=== PATIENT | female | born 2000 | race American Indian/Alaskan Native ===

== ENCOUNTER 2024-01-18 09:21 | Outpatient (AMB) | payer OTHER, SELFPAY ==
[2024-01-18 09:27] VITALS: BP 128/86; PULSE 100; O2SAT 99; BMI 32.6
--- NOTE | 2024-01-18 09:27 | AM.OFFWIN_ITS ---
Intake Vital Signs 3 01/18/24 09:27 Height 5 ft 2 in Weight 178 lb 8 oz BMI 32.6 BP 128/86 Blood Pressure Location Lt brachial Position Sitting Pulse 100 Pulse Source Pulse Oximeter Pulse Oximetry (%) 99 Oxygen Delivery Method Room Air Intake Visit Reasons: EP Lower Ab pain Patient Tobacco Use Status: Never used Tobacco Allergies No Known Allergies Allergy (Verified 01/18/24 09:29) Medication List - Last Reconciled 01/18/24 by Jarett Naqvi MD No Known Home Meds Do you need a note to return to daycare/school/sports/work: No HPI EP Lower Ab pain 2 HPI0 Details Patient is 23-year-old female came in today to be evaluated for lower abdominal discomfort Patient says that she has been having discomfort with past 1 week Her periods are irregular off and on She has a history of ovarian cyst that was removed On examination she is tender suprapubically over bladder Urine test done shows 3+ blood in urine I am treating her with Macrobid b.i.d. for 5 days We will send sample for urine culture Patient was encouraged to get a primary care Review system revealed no fever no chills no nausea vomiting no headaches PFSH Social History Patient Tobacco Use Status: Never used Tobacco Review of Systems Const All systems reviewed & are unremarkable except as noted in HPI and below Physical Exam Vital Signs: Last Vital Signs Pulse 100 01/18/24 09:27 BP 128/86 01/18/24 09:27 Pulse Ox 99 01/18/24 09:27 Oxygen Delivery Method Room Air 01/18/24 09:27 BMI result Body Mass Index 32.6 Const General: no acute distress Orientation/consciousness: patient oriented x3 Eyes General: appearance normal, both eyes and all related structures Resp Effort & Inspection: normal respiratory effort and able to speak in complete sentences Auscultation: clear to auscultation bilaterally GI Abdomen image: 2 1. Discomfort with pressure General: Yes no CVA tenderness Back/Spine/Pelvis Back: no CVA tenderness Neuro General: patient oriented x3 Psych Mental Status: mental status grossly normal Results AMB Urinalysis, Automated 2 UA Leukoctes Rubén/uL Last Edit by Teo Villarreal MA on 01/18/24 09:32 UA Nitrite Last Edit by Teo Villarreal MA on 01/18/24 09:32 UA Urobilinogen 0.2 mg/dL Last Edit by Teo Villarreal MA on 01/18/24 09:32 UA Protein mg/dL Last Edit by Teo Villarreal MA on 01/18/24 09:32 UA pH 7.0 Last Edit by Teo Villarreal MA on 01/18/24 09:32 UA Blood 200 Magdi/uL Last Edit by Teo Villarreal MA on 01/18/24 09:32 UA Specific [place] 1.010 Last Edit by Teo Villarreal MA on 01/18/24 09:3 2 UA Ketone Negative Last Edit by Teo Villarreal MA on 01/18/24 09:32 UA Bilirubin mg/dL Last Edit by Teo Villarreal MA on 01/18/24 09:32 UA Glucose mg/dL Last Edit by Teo Villarreal MA on 01/18/24 09:32 Results Reviewed Results Reviewed: Laboratory Last Values Urine pH (Auto) 7.0 01/18/24 09:31 Specific [place] (Auto) 1.010 01/18/24 09:31 Urine Ketones (Auto) Negative 01/18/24 09:31 Urine Blood (Auto) 200 Magdi/uL 01/18/24 09:31 Urine Urobilinogen (Auto) 0.2 mg/dL 01/18/24 09:31 Assessment & Plan Assessment & Plan (1) Hematuria: Code(s): R31.9 - Hematuria, unspecified Qualifiers: Hematuria type: gross Qualified Code(s): R31.0 - Gross hematuria Plan Patient is 23-year-old female came in today to be evaluated for lower abdominal discomfort Patient says that she has been having discomfort with past 1 week Her periods are irregular off and on She has a history of ovarian cyst that was removed On examination she is tender suprapubically over bladder Urine test done shows 3+ blood in urine I am treating her with Macrobid b.i.d. for 5 days We will send sample for urine culture Patient was encouraged to get a primary care Review system revealed no fever no chills no nausea vomiting no headaches Orders: Orders 2 Urine Culture Today R31.9 - Hematuria, unspecified Medications: New 2 nitrofurantoin monohyd/m-cryst 100 mg (Macrobid) must administer with a meal/food 100 mg PO Q12H 10 caps 0RF 5 days Coding Level of Care Code New Pt Level 3 (19406) Diagnoses Gross hematuria R31.0 Hematuria type: gross
== END 2024-01-18 10:06 | disposition home or self-care (01) ==
PROVIDERS: Visit Provider Internal Medicine
DX: R31.0 Gross hematuria (principal)
CPT/HCPCS: 99203

== ENCOUNTER 2024-09-26 12:16 | Outpatient (AMB) | payer OTHER, SELFPAY ==
[2024-09-26 12:19] VITALS: BP 126/80; PULSE 71; O2SAT 100; BMI 32.8
--- NOTE | 2024-09-26 12:19 | A.OFFPC_ITS ---
Vital Signs 09/26/24 12:19 Height 5 ft 2 in Weight 179 lb 2 oz BMI 32.8 BP 126/80 Blood Pressure Location Lt brachial Position Sitting Pulse 71 Pulse Source Pulse Oximeter Pulse Oximetry (%) 100 Oxygen Delivery Method Room Air Intake Visit Reasons: PE - see comments Allergies No Known Allergies Allergy (Verified 09/26/24 12:29) Medication List - Last Reconciled 09/26/24 by Jarett Naqvi MD albuterol sulfate mg inhalation Tobacco use date assessed: 09/26/24 HPI PE - see comments HPI Details Physical exam appointment - The patient is a 24-year-old female pr esenting for a wellness visit. - History of ovarian cyst; previously ex perienced lower abdominal pain for one week in December for hematuria, treated with Macrobid, symptoms resolved in walk-in clinic and recurred intermittently, currently resolved. - Intermittent asthma symptoms, triggere d by weather and illness; patient uses albuterol as needed. Health Maintenance - Annual OBGYN check-up is encouraged; l ast visit was after childbirth in August of the previous year. [facility] OBGYN - Discussed immunizations: Patient recei estella tetanus booster in 2022 and influenza vaccine this year. - Patient exercises irregularly with a g oal to attend the gym more consistently. 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[employer], [employer] employed Diagnostic results: Lab order placed to be done fasting Review of Systems - General: Denies swelling, nausea, vomi ting, diarrhea, constipation - Respiratory: Reports use of albuterol for asthma - Musculoskeletal: Denies new joint ache s or pains - Dermatologic: Denies rashes, history o f rash treated during - Neurological: No headaches no dizzin ess - Ear nose throat: No sore throat no hearing difficulty no ear pain - Cardiovascular: No syncope, no chest pain, no palpitations - Gastrointestinal: No nausea vomiting or diarrhea - Endocrine: No polyuria polydipsia no heat intolerance - Genitourinary: No dysuria - Skin: No new complaints Physical Exam General: Cooperative, healthy appearing, comfortable, no acute distress Orientation: Patient oriented x3 Limitations: None Head: Normal to inspection Ears: Within normal limit visually Nose: Normal external nose present Face and sinus: Normal facial exam Eyes: Appearance normal, extraocular movement intact pupils reactive Neck: Normal visual inspection and supple, thyroid normal Respiratory: Normal respiratory effort and able to speak in complete sentences. Clear to auscultation, no stridor Cardiovascular: S1 and S2 GI: Normal to inspection. Soft to palpation and nontender, slight discomfort noted but bearable Skin: Turgor normal, no acute findings, no moles or rashes present Neuro: Patient oriented x3, motor sensory intact, balance intact, tandem pass Extremities: Normal to inspection, no swelling, normal body aches noted Patient Instructions [facility] - Complete laboratory tests fasting; ref rain from eating 10 hours prior, only water allowed. - Engage in regular exercise to improve overall health. BMI is elevated at 32.8 Follow-up 1 year physical exam or early depending lab reports [facility] Social History Patient Tobacco Use Status: Never used Tobacco e-Cigarette/Vaping Use: Never Used service: No Current occupational status: employed Questionnaire PHQ-9 Over the last 2 weeks, how often have you been bothered by any of the following problems? 1. Little interest or pleasure in doing things: not at all 2. Feeling down, depressed, or hopeless: not at all 3. Trouble falling or staying asleep, or sleeping too much: nearly every day 4. Feeling tired or having little energy: more than half the days 5. Poor appetite or overeating: more than half the days 6. Feeling bad about yourself - or that you are a failure or have let yourself or your family down: not at all 7. Trouble concentrating on things, such as reading the newspaper or watching television: not at all 8. Moving or speaking so slowly that other people could have noticed. Or the opposite - being so fidgety or restless that you have been moving around a lot more than usual: not at all 9. Thoughts that you would be better off or of hurting yourself in some way: not at all Total score: 7 Depression Screening Interpretation: Negative Depression Screening Done: Yes 98324 - PHQ-9 Billing: Yes Source: Developed by Drs. Christoph Miramontes, Kaylynn Emery, Bacilio Contreras and colleagues, with an educational janell from [employer]. Thrive Questionnaire Date Thrive assessed: 08/12/24 I am a: Patient What is your living situation today?: I have a steady place to live Within the past 12 months, did the food you bought not last and you didn't have the money to get more?: Sometimes True Within the past 12 months, did you worry whether your food would run out before you got money to buy more?: Sometimes True Do you have trouble paying for medicines?: Yes Do you have trouble getting transportation to medical appointments?: Yes Do you have trouble paying your heating and electricity bill?: Yes Do you have trouble taking care of your child, family member or friend?: No Do you have trouble with day-to-day activities such as bathing, preparing meals, shopping, managing finances, etc.?: No Are you currently unemployed and looking for a job?: No Are you interested in more education?: No Please select the resources that you would like help with: None Currently or been in a relationship where the following occur: No concerns reported THRIVE Score: 4 Physical exam (Primary Care) Vital Signs: Last Vital Signs Pulse 71 09/26/24 12:19 BP 126/80 09/26/24 12:19 Pulse Ox 100 09/26/24 12:19 Oxygen Delivery Method Room Air 09/26/24 12:19 BMI result Body Mass Index 32.8 Tobacco/Smoking Status: Tobacco use Status Tobacco use date assessed 09/26/24 09/26/24 12:29 Patient Tobacco Use Status Never used Tobacco 09/26/24 12:20 e-Cigarette/Vaping Use Never Used 09/26/24 12:29 PHQ-9: PHQ-9 Score PHQ-9: Total score 7 09/26/24 12:20 Depression Screening Interpretation: Negative Thrive Assessment: Date of Thrive Assessment Date Thrive assessed 08/12/24 09/26/24 12:20 Currently or been in a relationship where the following occur: No concerns reported Coding Level of Care Code New Pt Level 3 (68963) New Pt Prev Care 18-39yr(69147 Diagnoses Encounter for general adult medical examination with abnormal findings Z00.01 Class 1 obesity due to excess calories without serious comorbidity with body mass index (BMI) of 32.0 to 32.9 in adult E66.811; E66.09; Z68.32 Obesity classification: adult class 1 (BMI 30 - 34.9) Serious obesity comorbidity presence: without serious comorbidity Body mass index: BMI 32.0-32.9 Mild intermittent asthma without complication J45.20 Asthma severity: mild Asthma complication type: uncomplicated Additional Codes PHQ-9 - 73968 - PHQ-9 Billing: Yes ([id number]) Assessment & Plan Assessment & Plan (1) Encounter for general adult medical examination with abnormal findings: Code(s): Z00.01 - Encounter for general adult medical examination with abnormal findings Category: Medical (2) Obesity due to excess calories: Code(s): E66.09 - Other obesity due to excess calories Category: Medical Qualifiers: Obesity classification: adult class 1 (BMI 30 - 34.9) Serious obesity comorbidity presence: without serious comorbidity Body mass index: BMI 32.0- 32.9 Qualified Code(s): E66.811 - Obesity, class 1; E66.09 - Other obesity due to excess calories; Z68.32 - Body mass index [BMI] 32.0-32.9, adult (3) Intermittent asthma: Code(s): J45.20 - Mild intermittent asthma, uncomplicated Category: Medical Qualifiers: Asthma severity: mild Asthma complication type: uncomplicated Qualified Code(s): J45.20 - Mild intermittent asthma, uncomplicated Plan Physical exam appointment - The patient is a 24-year-old female presenting for a wellness visit. - History of ovarian cyst; previously experienced lower abdominal pain for one week in December for hematuria, treated with Macrobid, symptoms resolved in walk-in clinic and recurred intermittently, currently resolved. - Intermittent asthma symptoms, triggered by weather and illness; patient uses albuterol as needed. Health Maintenance - Annual OBGYN check-up is encouraged; last visit was after childbirth in August of the previous year. [facility]YN - Discussed immunizations: Patient received tetanus booster in 2022 and influenza vaccine this year. - Patient exercises irregularly with a goal to attend the gym more consistently. 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[employer], currently employed Diagnostic results: Lab order placed to be done fasting Review of Systems - General: Denies swelling, nausea, vomiting, diarrhea, constipation - Respiratory: Reports use of albuterol for asthma - Musculoskeletal: Denies new joint aches or pains - Dermatologic: Denies rashes, history of rash treated during - Neurological: No headaches no dizziness - Ear nose throat: No sore throat no hearing difficulty no ear pain - Cardiovascular: No syncope, no chest pain, no palpitations - Gastrointestinal: No nausea vomiting or diarrhea - Endocrine: No polyuria polydipsia no heat intolerance - Genitourinary: No dysuria - Skin: No new complaints Physical Exam General: Cooperative, healthy appearing, comfortable, no acute distress Orientation: Patient oriented x3 Limitations: None Head: Normal to inspection Ears: Within normal limit visually Nose: Normal external nose present Face and sinus: Normal facial exam Eyes: Appearance normal, extraocular movement intact pupils reactive Neck: Normal visual inspection and supple, thyroid normal Respiratory: Normal respiratory effort and able to speak in complete sentences. Clear to auscultation, no stridor Cardiovascular: S1 and S2 GI: Normal to inspection. Soft to palpation and nontender, slight discomfort noted but bearable Skin: Turgor normal, no acute findings, no moles or rashes present Neuro: Patient oriented x3, motor sensory intact, balance intact, tandem pass Extremities: Normal to inspection, no swelling, normal body aches noted Patient Instructions - Schedule and attend annual OBGYN follow-up. - Complete laboratory tests fasting; refrain from eating 10 hours prior, only water allowed. - Engage in regular exercise to improve overall health. BMI is elevated at 32.8 Follow-up 1 year physical exam or early depending lab reports Orders: Orders Comprehensive [place]. Panel Fast Today E66.09 - Other obesity due to excess calories, J45.20 - Mild intermittent asthma, uncomplicated, Z00.01 - Encounter for general adult medical examination with abnormal findings Lipid Panel Today E66.09 - Other obesity due to excess calories, J45.20 - Mild intermittent asthma, uncomplicated, Z00.01 - Encounter for general adult medical examination with abnormal findings TSH reflex Free T4 Today E66.09 - Other obesity due to excess calories, J45.20 - Mild intermittent asthma, uncomplicated, Z00.01 - Encounter for general adult medical examination with abnormal findings Complete Blood Count Auto Diff Today E66.09 - Other obesity due to excess calories, J45.20 - Mild intermittent asthma, uncomplicated, Z00.01 - Encounter for general adult medical examination with abnormal findings Vitamin D 25-OH (D2 and D3) Today E66.09 - Other obesity due to excess calories, J45.20 - Mild intermittent asthma, uncomplicated, Z00.01 - Encounter for general adult medical examination with abnormal findings
== END 2024-09-26 13:39 | disposition home or self-care (01) ==
PROVIDERS: PCP Internal Medicine; Visit Provider Internal Medicine
DX: Z00.00 Encounter for general adult medical examination without abnormal findings (principal); E66.811 Obesity, class 1; E66.09 Other obesity due to excess calories; Z68.32 Body mass index [BMI] 32.0-32.9, adult; J45.20 Mild intermittent asthma, uncomplicated

== ENCOUNTER → 2024-09-26 12:16 | Outpatient (BNVA) | payer OTHER, SELFPAY | PROVIDERS: PCP Internal Medicine; Visit Provider Internal Medicine | DX: Z00.01 Encounter for general adult medical examination with abnormal findings (principal); E66.09 Other obesity due to excess calories; Z68.32 Body mass index [BMI] 32.0-32.9, adult; J45.20 Mild intermittent asthma, uncomplicated; Z71.3 Dietary counseling and surveillance | CPT/HCPCS: 96127; 99385 ==

== ENCOUNTER 2024-09-28 10:14 | Outpatient (REF) | payer OTHER, SELFPAY ==
[2024-09-28 13:06] LABS: MANUAL DIFF FLAG NO
[2024-09-28 13:11] LABS: Basophils Absolute Auto 0.1 X10*3/uL (0.0-0.2); Basophils Percent Auto 0.6 % (0-2); Eosinophils Absolute Auto 0.3 X10*3/uL (0.0-0.4); Eosinophils Percent Auto 3.3 % (0-4); Hematocrit 45.3 % (37.0-47.0); Hemoglobin 15.6 g/dl (12.0-16.0); Imm Gran Abs Auto 0.03 X10*3/uL (0.00-0.03); Imm Gran Pct Auto 0.3 % (0.0-0.4); Lymphocytes Absolute Auto 2.8 X10*3/uL (1.2-4.9); Lymphocytes Percent Auto 27.8 % (20-40); Mean Corpuscular HGB Conc 34.4 g/dl (31.0-35.0); Mean Corpuscular Hemoglobin 29.1 pg (27.0-33.0); Mean Corpuscular Volume 84.5 fL (80.0-98.0); Monocytes Absolute Auto 0.7 X10*3/uL (0.1-1.2); Monocytes Percent Auto 6.5 % (2-11); Neutrophils Absolute Auto 6.2 x10*3/uL (2.0-8.3); Neutrophils Percent Auto 61.5 % (45-73); Platelet Count 316 X10*3/uL (160-400); Red Blood Count 5.36 X10*6/uL (4.20-5.50); Red Cell Distribution Width 13.4 % (11.0-16.0)
[2024-09-28 13:35] LABS: Alanine Aminotransferase 32 U/L (0-31); Albumin Level 4.7 g/dL (3.5-5.0); Alkaline Phosphatase 100 U/L (39-117); Anion Gap 10 (12-20); Aspartate Amino Transferase 27 U/L (5-31); Bilirubin Total 0.8 mg/dL (0.0-1.0); Blood Urea Nitrogen 11 mg/dL (9-16); Calcium 9.3 mg/dL (8.4-10.2); Carbon Dioxide 23 mmol/L (22-29); Chloride 110 mmol/L (96-108); Cholesterol 140 mg/dL (<200); Estimated Glomerular Filt Rate > 60; Glucose Fasting 93 mg/dL (60-99); HDL Cholesterol 39 mg/dL (>40); LDL Cholesterol Calculated 89 mg/dL (<100); Potassium 3.8 mmol/L (3.3-5.1); Sodium 139 mmol/L (135-145); Total Protein 8.1 g/dL (6.5-8.0); Triglycerides 61 mg/dL (<150)
[2024-09-28 13:42] LABS: TSH reflex Free T4 0.62 uIU/mL (0.32-4.0)
[2024-10-04 06:18] LABS: Vitamin D 25-OH, D2 <4 ng/mL; Vitamin D 25-OH, D3 19 ng/mL; Vitamin D 25-OH, Total 19 ng/mL (30-100)
== END 2024-09-28 10:15 | disposition home or self-care (01) ==
LOC: HO.HMGCLDS 10:14
PROVIDERS: PCP Internal Medicine; Visit Provider Internal Medicine
DX: Z00.01 Encounter for general adult medical examination with abnormal findings (principal); E66.09 Other obesity due to excess calories; J45.20 Mild intermittent asthma, uncomplicated
CPT/HCPCS: 36415; 80053; 80061; 82306; 84443; 85025